=== PATIENT | male | born 1965 | race Caucasian/White ===

== ENCOUNTER 2019-04-13 16:43 | Observation (INO) ==
--- NOTE | 2019-04-13 17:28 | Emergency Department Note ---
Disposition Clinical Impression: Hypokalemia, Hypomagnesemia Disposition: Admitted As Inpatient Time of Disposition: 20:20 General Adult HPI - General Chief complaint: ED Extremity Problem,Nontraumatic Stated complaint: Right hand cellulitis Time Seen by Provider: 04/13/19 17:22 - History of Present Illness Pain Scale: 0 - Related Data Home Medications Medication Instructions Recorded Confirmed Metformin HCl [Fortamet] 1,000 mg PO DAILY 03/08/19 04/13/19 Metoprolol Succinate [Toprol Xl] 100 mg PO DAILY 03/09/19 04/13/19 Previous Rx's Medication Instructions Recorded Multivitamin [One Daily] 1 each PO DAILY #30 tablet 03/15/19 Sodium Chloride [Sodium Chloride 1 gm PO TID #90 tablet 03/15/19 Tab] Tamsulosin [Flomax] 0.4 mg PO DAILY #30 capsule 03/15/19 Allergies Allergy/AdvReac Type Severity Reaction Status Date / Time Sulfa (Sulfonamide Allergy Rash Verified 03/09/19 10:31 Antibiotics) Past Medical History - Past Medical History Medical history: Reports: diabetes, hypertension Psychiatric history: Reports: no psych history - Social History Smoking Status: Never smoker Alcohol use: Reports: heavy Drug use: Reports: none Course Vital Signs Temperature 97.7 F 04/13/19 16:44 Pulse Rate 92 04/13/19 16:44 Respiratory Rate 16 04/13/19 16:44 Blood Pressure 104/68 04/13/19 16:44 O2 Sat by Pulse Oximetry 97 04/13/19 16:44 Temperature 97.7 F 04/13/19 18:20 Pulse Rate 80 04/13/19 19:53 Respiratory Rate 17 04/13/19 19:53 Blood Pressure 124/81 04/13/19 19:53 O2 Sat by Pulse Oximetry 98 04/13/19 19:53 Oxygen Delivery Oxygen Delivery Room Air Medical Decision Making - Lab Data Result diagrams: 04/13/19 17:42 04/13/19 17:42 Lab Results 04/13/19 04/13/19 04/13/19 Range/Units 17:42 17:42 17:42 WBC 8.5 (4.3-11.1) K/mcL RBC 3.28 L (4.19-5.50) M/mcL Hgb 10.2 L (12.9-16.9) g/dL Hct 29.7 L (37.5-50.1) % MCV 90.5 (83.0-100.0) fL MCH 31.1 (28.0-33.3) pg MCHC 34.3 (31.6-35.5) g/dL RDW 13.1 (11.5-14.5) % Plt Count 297 (140-400) K/mcL MPV 9.4 (9.4-12.4) fL Immature Gran % 1.3 (0-4) % Seg Neutrophils % 77.9 % Lymphocytes % 11.3 % Monocytes % 8.6 % Eosinophils % 0.5 % Basophils % 0.4 % Neutrophils # 6.6 (1.6-8.9) K/mcL Lymphocytes # 1.0 (0.6-4.6) K/mcL Monocytes # 0.7 (0.0-1.3) K/mcL Eosinophils # 0.0 (0.0-0.6) K/mcL Basophils # 0.0 (0.0-0.2) K/mcL ESR 72 H (0-10) mm/hr Sodium 129 L (136-145) mEq/L Potassium 2.3 L* (3.5-5.1) mEq/L Chloride 84 L (98-107) mEq/L Carbon Dioxide 41 H* (23-29) mEq/L BUN 8 (6-20) mg/dL Creatinine 0.67 L (0.70-1.30) mg/dL Est GFR ( Amer) > 60 (> 60) Est GFR (Non-Af Amer) > 60 (> 60) BUN/Creatinine Ratio 12 (6-26) Glucose 124 H (70-105) mg/dL Calculated Osmolality 268 L (280-300) Calcium 8.1 L (8.6-10.3) mg/dL Phosphorus 3.3 (2.7-4.5) mg/dL Magnesium 1.1 L (1.6-2.6) mg/dL C-Reactive Protein 127 H (Less than 10) mg/L Urine Color (Yellow) Urine Clarity (Clear) Urine pH (5.0-8.0) pH Units Ur Specific [place] (1.010-1.025) Urine Protein (Neg-Trace) mg/dL Urine Glucose (UA) (Normal) mg/dL Urine Ketones (Negative) mg/dL Urine Blood (Negative) Urine Nitrite (Negative) Urine Bilirubin (Negative) Urine Urobilinogen (Normal) mg/dL Ur Leukocyte Esterase (Negative) 04/13/19 Range/Units 19:45 WBC (4.3-11.1) K/mcL RBC (4.19-5.50) M/mcL Hgb (12.9-16.9) g/dL Hct (37.5-50.1) % MCV (83.0-100.0) fL MCH (28.0-33.3) pg MCHC (31.6-35.5) g/dL RDW (11.5-14.5) % Plt Count (140-400) K/mcL MPV (9.4-12.4) fL Immature Gran % (0-4) % Seg Neutrophils % % Lymphocytes % % Monocytes % % Eosinophils % % Basophils % % Neutrophils # (1.6-8.9) K/mcL Lymphocytes # (0.6-4.6) K/mcL Monocytes # (0.0-1.3) K/mcL Eosinophils # (0.0-0.6) K/mcL Basophils # (0.0-0.2) K/mcL ESR (0-10) mm/hr Sodium (136-145) mEq/L Potassium (3.5-5.1) mEq/L Chloride (98-107) mEq/L Carbon Dioxide (23-29) mEq/L BUN (6-20) mg/dL Creatinine (0.70-1.30) mg/dL Est GFR ( Amer) (> 60) Est GFR (Non-Af Amer) (> 60) BUN/Creatinine Ratio (6-26) Glucose (70-105) mg/dL Calculated Osmolality (280-300) Calcium (8.6-10.3) mg/dL Phosphorus (2.7-4.5) mg/dL Magnesium (1.6-2.6) mg/dL C-Reactive Protein (Less than 10) mg/L Urine Color Yellow (Yellow) Urine Clarity Cloudy A (Clear) Urine pH 7.0 (5.0-8.0) pH Units Ur Specific [place] 1.012 (1.010-1.025) Urine Protein Trace (Neg-Trace) mg/dL Urine Glucose (UA) Normal (Normal) mg/dL Urine Ketones Negative (Negative) mg/dL Urine Blood Negative (Negative) Urine Nitrite Positive A (Negative) Urine Bilirubin Negative (Negative) Urine Urobilinogen 4.0 H (Normal) mg/dL Ur Leukocyte Esterase Moderate H (Negative) Critical Care Time Critical Care Time: Yes Total Critical Care Time: 30 Attestation: The high probability of a clinically significant, sudden or life threatening deterioration of the [] system(s) required my full and direct attention, intervention and personal management. The aggregate critical care time was [] minutes. This time is in addition to time spent performing reported procedures but includes the following: [] Data Review and interpretation [] Patient assessment and monitoring of vital signs [] Documentation [] Medication orders and management Attestation Statement - Attestation Attestation: I reviewed the residents documentation and agree with the residents assessment and plan of care. I have personally had face to face time with the patient. (Brief History, Brief Exam, and MDM) I personally supervised and was present for the granados/critical portions of the following procedures completed by the resident: (add procedures performed here). Face to face time provided Patient to ED from residency clinic. Atraumatic right hand swelling. Mild increased tactile warmth. visible swelling. No reports of injury I attest to supervising the resident physician's interpretation of the ECG
--- NOTE | 2019-04-13 18:14 | Emergency Department Note ---
Disposition Clinical Impression: Hypokalemia, Hypomagnesemia Disposition: Admitted As Inpatient Referrals: Kiran Broussard DO [Primary Care Provider] - Forms: ED Satisfaction Letter Time of Disposition: 19:35 Extremity Problem HPI - General Chief complaint: ED Extremity Problem,Nontraumatic Stated complaint: Right hand cellulitis Time Seen by Provider: 04/13/19 17:22 Source: patient, family Mode of arrival: ambulatory Limitations: no limitations Nursing Notes Reviewed: Yes Vital Signs Reviewed: Yes - History of Present Illness HPI Narrative: 54M with past medical history of diabetes and hypertension presents to the emergency room from the residency clinic with the complaint of right hand swelling and dysuria. There is also some concern as the patient has had a dropping hemoglobin over the past several months. Patient denies pain in the hand. He admits to some odor in the urine. He denies fever, chills, chest pain, shortness of breath, abdominal pain, nausea vomiting, diarrhea. Pain Scale: 0 - Related Data Home Medications Medication Instructions Recorded Confirmed Metformin HCl [Fortamet] 1,000 mg PO DAILY 03/08/19 03/09/19 Metoprolol Succinate [Toprol Xl] 100 mg PO DAILY 03/09/19 03/09/19 Previous Rx's Medication Instructions Recorded Multivitamin [One Daily] 1 each PO DAILY #30 tablet 03/15/19 Sodium Chloride [Sodium Chloride 1 gm PO TID #90 tablet 03/15/19 Tab] Tamsulosin [Flomax] 0.4 mg PO DAILY #30 capsule 03/15/19 Allergies Allergy/AdvReac Type Severity Reaction Status Date / Time Sulfa (Sulfonamide Allergy Rash Verified 03/09/19 10:31 Antibiotics) All systems ED: reviewed and negative except as stated. Review of Systems: As Per HPI Constitutional: Denies: fever, chills, weakness Cardiovascular: Denies: chest pain, palpitations, dyspnea on exertion Respiratory: Denies: cough, dyspnea, wheezes Gastrointestinal: Denies: abdominal pain, nausea, vomiting Genitourinary: Reports: dysuria. Denies: hematuria Musculoskeletal: Reports: joint swelling. Denies: back pain, neck pain Integumentary: Denies: rash Neurological: Denies: headache Psychiatric: Denies: anxiety Endocrine: Denies: fatigue Past Medical History - Past Medical History Attestation: Yes The following information was validated with the patient. Source: patient Medical history: Reports: diabetes, hypertension Psychiatric history: Reports: no psych history - Social History Smoking Status: Never smoker Alcohol use: Reports: heavy Drug use: Reports: none Physical Exam - General Limitations: no limitations General appearance: alert, in no apparent distress - Head Head exam: atraumatic, normocephalic - Eye Eye exam: Present: normal appearance, PERRL, EOMI - ENT ENT exam: normal exam, normal oropharynx - Neck Neck exam: Present: normal inspection. Absent: tenderness - Chest Chest inspection: Present: normal inspection. Absent: tenderness - Respiratory Respiratory exam: Present: normal lung sounds bilaterally. Absent: wheezes - Cardiovascular Cardiovascular exam: Present: regular rate, normal rhythm - Abdominal Exam Abdominal exam: Present: soft, Non-Tender. Absent: distention, guarding, rebound, rigidity - Extremities Exam Extremities exam: Present: other (Right hand swelling without any tenderness to palpation. Nonpitting edema. No visible lacerations or abrasions. Not erythematous or warm to touch) - Neurological Exam Neurological exam: Present: alert, oriented X3 - Psychiatric Psychiatric exam: Present: normal affect, normal mood - Skin Skin exam: Present: warm, dry, intact Course Vital Signs Temperature 97.7 F 04/13/19 16:44 Pulse Rate 92 04/13/19 16:44 Respiratory Rate 16 04/13/19 16:44 Blood Pressure 104/68 04/13/19 16:44 O2 Sat by Pulse Oximetry 97 04/13/19 16:44 Temperature 97.7 F 04/13/19 18:20 Pulse Rate 79 04/13/19 18:50 Respiratory Rate 15 04/13/19 18:50 Blood Pressure 132/80 04/13/19 18:50 O2 Sat by Pulse Oximetry 96 04/13/19 18:50 Oxygen Delivery Oxygen Delivery Room Air Extremity Problem, Nontraumati - MDM Narrative Medical decision making narrative: Patient presents with right hand swelling and dysuria. We will evaluate the dysuria with urinalysis and we will evaluate the hand with a right upper extremity ultrasound, basic lab work, ESR and CRP. 181 - patient is negative for DVT and SVT in the right upper extremity. Awaiting lab work at this time. 183 - patient's potassium is critically low at 2.3. We will add on a magnesium, EKG and placed patient on a cardiac cath lab manager. 1900 - patient's magnesium is 1.1. EKG does not demonstrate any significant prolongation or other changes consistent with hypokalemia. Patient will be admitted for placement of his electrolytes. We will administer 2 g of magnesium here along with 80 mg of potassium. 1934 - patient has been accepted by Dr. Turnre - Medical Records Medical records reviewed: Yes I reviewed the patient's medical records. - Lab Data Lab results reviewed: Yes I reviewed the patient's lab results. Result diagrams: 04/13/19 17:42 04/13/19 17:42 Lab Results 04/13/19 04/13/19 04/13/19 Range/Units 17:42 17:42 17:42 WBC 8.5 (4.3-11.1) K/mcL RBC 3.28 L (4.19-5.50) M/mcL Hgb 10.2 L (12.9-16.9) g/dL Hct 29.7 L (37.5-50.1) % MCV 90.5 (83.0-100.0) fL MCH 31.1 (28.0-33.3) pg MCHC 34.3 (31.6-35.5) g/dL RDW 13.1 (11.5-14.5) % Plt Count 297 (140-400) K/mcL MPV 9.4 (9.4-12.4) fL Immature Gran % 1.3 (0-4) % Seg Neutrophils % 77.9 % Lymphocytes % 11.3 % Monocytes % 8.6 % Eosinophils % 0.5 % Basophils % 0.4 % Neutrophils # 6.6 (1.6-8.9) K/mcL Lymphocytes # 1.0 (0.6-4.6) K/mcL Monocytes # 0.7 (0.0-1.3) K/mcL Eosinophils # 0.0 (0.0-0.6) K/mcL Basophils # 0.0 (0.0-0.2) K/mcL ESR 72 H (0-10) mm/hr Sodium 129 L (136-145) mEq/L Potassium 2.3 L* (3.5-5.1) mEq/L Chloride 84 L (98-107) mEq/L Carbon Dioxide 41 H* (23-29) mEq/L BUN 8 (6-20) mg/dL Creatinine 0.67 L (0.70-1.30) mg/dL Est GFR ( Amer) > 60 (> 60) Est GFR (Non-Af Amer) > 60 (> 60) BUN/Creatinine Ratio 12 (6-26) Glucose 124 H (70-105) mg/dL Calculated Osmolality 268 L (280-300) Calcium 8.1 L (8.6-10.3) mg/dL Magnesium 1.1 L (1.6-2.6) mg/dL C-Reactive Protein 127 H (Less than 10) mg/L - EKG Data EKG attestation: Yes I reviewed and interpreted this EKG. EKG results narrative: EKG obtained at 18:42 on 04/13/2090 Heart rate 73 bpm, MO interval 136, QRS duration 93, QT 443, QTC 489 Sinus rhythm with borderline prolonged QT interval. No signs of ST segment elevation or depression. No significant flattening of the T waves. No acute hypokalemic changes. No old EKG for comparison.
[2019-04-13 18:21] LABS: Basophils % 0.4 %; Eosinophils % 0.5 %; Hematocrit 29.7 % (37.5-50.1); Hemoglobin 10.2 g/dL (12.9-16.9); Immature Granulocytes % 1.3 % (0-4); Lymphocytes % 11.3 %; Mean Corpuscular HGB Conc 34.3 g/dL (31.6-35.5); Mean Corpuscular Hemoglobin 31.1 pg (28.0-33.3); Mean Corpuscular Volume 90.5 fL (83.0-100.0); Mean Platelet Volume 9.4 fL (9.4-12.4); Monocytes # 0.7 K/mcL (0.0-1.3); Monocytes % 8.6 %; Neutrophils # 6.6 K/mcL (1.6-8.9); Platelet Count 297 K/mcL (140-400); Red Blood Count 3.28 M/mcL (4.19-5.50); Red Cell Distribution Width 13.1 % (11.5-14.5); Segmented Neutrophils % 77.9 %; White Blood Count 8.5 K/mcL (4.3-11.1)
[2019-04-13 18:32] LABS: BUN/Creatinine Ratio 12 (6-26); Blood Urea Nitrogen 8 mg/dL (6-20); C-Reactive Protein 127 mg/L (Less than 10); Calcium 8.1 mg/dL (8.6-10.3); Carbon Dioxide 41 mEq/L (23-29); Chloride 84 mEq/L (98-107); Glucose 124 mg/dL (70-105); Osmolality,Calculated 268 (280-300); Potassium 2.3 mEq/L (3.5-5.1); Sodium 129 mEq/L (136-145); eGFR For African Americans > 60 (> 60); eGFR For Non-African Americans > 60 (> 60)
[2019-04-13] MEDS ORDERED: Potassium Chloride Elixir 20 MEQ/15 ML UDC PO ONE (18:37)
[2019-04-13] MEDS ORDERED: Potassium Chloride 40 MEQ, Lidocaine 1% 2 ML in D5% in Water 500 ML IVPB ONE (18:49)
[2019-04-13 18:58] LABS: Magnesium 1.1 mg/dL (1.6-2.6)
[2019-04-13 20:00] LABS: Bilirubin,Urine Negative (Negative); Blood,Urine Negative (Negative); Clarity,Urine Cloudy (Clear); Color,Urine Yellow (Yellow); Glucose,Urine (UA) Normal (Normal); Ketones,Urine Negative (Negative); Leukocyte Esterase,Urine Moderate (Negative); Nitrite,Urine Positive (Negative); Protein,Urine Trace mg/dL (Neg-Trace); Specific Gravity,Urine 1.012 (1.010-1.025)
[2019-04-13 20:04] LABS: Phosphorous 3.3 mg/dL (2.7-4.5)
[2019-04-13 20:05] LABS: Bacteria,Urine Many per hpf (None-Few); Hyaline Casts,Urine None Seen per lpf (None-Few); Squamous Epithelial Cell,Urine Moderate per lpf (None-Few)
[2019-04-13 20:20] LABS: RBC,Urine 0-3 per hpf (0-3); WBC,Urine 15-30 per hpf (0-3)
[2019-04-13] MEDS ORDERED: cefTRIAXone 1,000 MG in Water for inj. (sterile) 10 ML IVPB ONE (20:26)
[2019-04-13] MEDS ORDERED: Naloxone 0.4 MG/ML INJ IVP PRN (22:23)
--- NOTE | 2019-04-13 22:42 | Internal Med History&Physical ---
Date of Encounter: 04/13/19 Time of Encounter: 21:20 Internal Medicine - H&P: HPI Chief complaint: Electrolyte abnormalities Admitted From: Emergency Dept Plans for Post Hospital Care: Home History of present illness: Mr. Alcaraz is a 54 year old male Patient presented to the emergency department with swelling in his right hand, fevers for 1 week and burning with urination. He had been at the residency clinic for routine follow up from his previous hospitalization after being discharged from the hospital March 15 for severe hyponatremia and alcoholism. According to family who is at bedside they state that he has been off alcohol since his discharge, he has lost about 20 pounds, he has no appetite and he is been feverish. At the residency clinic he was also noted to have a low hemoglobin. They recommended him coming to the emergency department for further evaluation. In the emergency department patient's initial vital signs were within normal limits CBC: White count 8.5, hemoglobin 10.2, platelets 297 BMP: Sodium 129, potassium 2.3, chloride 84, bicarbonate 41, BUN 8, creatinine 0.67, glucose 124. Magnesium 1.1 Calcium 8.1 Phosphorus 3.3 C-reactive protein 127 ESR 72 Urinalysis: Nitrite positive, negative blood, moderate leukocyte esterase, 15-30 white blood cells EKG: Sinus rhythm, rate 73, QTC 489 ms. No ischemic changes. In the emergency department patient had an ultrasound of his hand performed which was negative for DVT and SVT in the right upper extremity. He was started on oral and IV potassium, as well as IV magnesium. He was given 1 dose of ceftriaxone IV, and urine cultures were obtained. He was admitted to the hospital for further management. Upon my evaluation, patient is resting comfortably in hospital bed in no acute distress. His family is at bedside and they assist with the history. The patient denies chest pain, bowel pain, nausea, vomiting, diarrhea and constip ation. The family confirms that he has not had alcohol since his previous hospitalization. Formally he was drinking 18-20 beers daily. They think that since then he has not had much of an appetite and thus accounting for his weight loss. He is a full code. Past Med Surg Social Fam HX - Past Medical History Medical history: diabetes, hypertension Additional medical history: EtOH abuse Psychiatric history: no psych history - Past Surgical History Additional surgical history: L ankle - Social History Smoking Status: Never smoker Smokeless Tobacco Status: No Alcohol use: none, heavy Drug use: none - Family History Mother Hx Family Endocrine Disorder: Yes (Diabetes) Father Hx Family Endocrine Disorder: Yes (Diabetes) Internal Medicine - H&P: Meds Metformin HCl [Fortamet] 1,000 mg PO DAILY 03/08/19 [History] Metoprolol Succinate [Toprol Xl] 100 mg PO DAILY 03/09/19 [History] Multivitamin [One Daily] 1 each PO DAILY #30 tablet 03/15/19 [Rx] Sodium Chloride [Sodium Chloride Tab] 1 gm PO TID #90 tablet 03/15/19 [Rx] Tamsulosin [Flomax] 0.4 mg PO DAILY #30 capsule 03/15/19 [Rx] Allergy/AdvReac Type Severity Reaction Status Date / Time Sulfa (Sulfonamide Allergy Rash Verified 03/09/19 10:31 Antibiotics) All Systems PM: A 10-system review of systems was performed and is negative for pertinent findings except as documented above in the HPI. - Constitutional Vitals: Temp Pulse Resp BP Pulse Ox 98.1 F 76 16 146/89 96 04/13/19 20:43 04/13/19 20:43 04/13/19 20:43 04/13/19 20:43 04/13/19 20:43 Exam: - General appearance: Present: cooperative, A&O X 3, pleasant, no acute distress, answers questions appropriately Exam: - Head Head exam: Present: normal inspection - Eye Eye exam: Present: EOMI, normal appearance - Respiratory Respiratory exam: Present: CTAB. Absent: rales, respiratory distress, rhonchi, wheezes - Cardiovascular Cardiovascular exam: Present: RRR. Absent: Grade 2 systolic murmur - GI/Abdominal GI/Abdominal exam: Present: normal bowel sounds, soft. Absent: tenderness - Extremities Exam Extremities exam: Present: warm, radial pulses palpable and symmetrical. Absent: calf tenderness, pedal edema, tenderness. Mild right hand swelling, nontender, full range of motion at wrist and fingers. No wound - Neurological Exam Neurological exam: Present: no focal deficits, strengths equal and symetr throughout. Absent: motor sensory deficit, facial droop, speech deficit - Skin Skin exam: Present: dry, normal color, warm Internal Med - H&P Results - Labs CBC & Chem 7: 04/13/19 17:42 04/13/19 17:42 Labs: Short CBC 04/13/19 Range/Units 17:42 WBC 8.5 (4.3-11.1) K/mcL Hgb 10.2 L (12.9-16.9) g/dL Hct 29.7 L (37.5-50.1) % Plt Count 297 (140-400) K/mcL Neutrophils # 6.6 (1.6-8.9) K/mcL BMP 04/13/19 17:42 Sodium 129 L Potassium 2.3 L* Chloride 84 L Carbon Dioxide 41 H* BUN 8 Creatinine 0.67 L Glucose 124 H Calcium 8.1 L Urine 04/13/19 Range/Units 19:45 Urine Color Yellow (Yellow) Urine Clarity Cloudy A (Clear) Urine pH 7.0 (5.0-8.0) pH Units Ur Specific [place] 1.012 (1.010-1.025) Urine Protein Trace (Neg-Trace) mg/dL Urine Glucose (UA) Normal (Normal) mg/dL - Assessment and Plan (1) Hypokalemia Current Visit: Yes Status: Acute Assessment and plan: Potassium was 2.3 in the emergency department. A total of 80 mEq of potassium has been given. Repeat BMP Replete if indicated (2) Hypomagnesemia Current Visit: Yes Status: Acute Assessment and plan: Magnesium was 1.1 in the emergency department. 2 g of magnesium was given in the emergency department. Repeat magnesium level Replete if indicated (3) Hyponatremia Current Visit: No Status: Acute Assessment and plan: Sodium 129, down from 133 about 2 weeks ago. He is much improved from his initial presentation earlier last month when he had a sodium of 111. Avoid overcorrection Hold IV fluids Repeat BMP Will give slow IV fluids if indicated Continue salt tablets once no longer nothing by mouth (4) Hypocalcemia Current Visit: Yes Status: Acute Assessment and plan: Likely secondary to malnutrition and low magnesium. Repeat morning labs Replete magnesium (5) Swelling of right hand Current Visit: Yes Status: Acute Assessment and plan: Patient does have mild swelling on exam, but no tenderness or loss of motion. No DVT noted on the ultrasound performed in the emergency department. Will consider further imaging if infection is suspected though at this time low suspicion of infection. Patient does have elevated ESR and CRP, but no other obvious signs of infection. Patient has been started on ceftriaxone for UTI, however blood cultures were not obtained in the emergency room. Obtain blood cultures Monitor for worsening signs of infection (6) UTI (urinary tract infection) Current Visit: No Status: Acute Assessment and plan: Positive nitrite with symptomatic dysuria and odor. Urine culture obtained, patient was started on ceftriaxone. Continue ceftriaxone Follow-up urine culture Qualifiers: Urinary tract infection type: acute cystitis Hematuria presence: without hematuria Qualified Code(s): N30.00 - Acute cystitis without hematuria (7) Weight loss Current Visit: Yes Status: Acute Assessment and plan: Likely secondary to adjustments of no longer drinking high levels of alcohol as he used to do. Family would like nutrition recommendations to help him maintain and gain his weight back. Nutrition consult in the morning (8) Diabetes Current Visit: No Status: Chronic Assessment and plan: Patient is not an insulin dependent diabetic Monitor sugars every 6 hours Nothing by mouth while patient is having supplementation for his electrolyte derangements Low dose insulin sliding scale as needed Hold home meds. Qualifiers: Diabetes mellitus type: type 2 Diabetes mellitus prison insulin use: without prison use Diabetes mellitus complication status: without complication Qualified Code(s): E11.9 - Type 2 diabetes mellitus without complications (9) DVT prophylaxis Current Visit: No Status: Acute Assessment and plan: Subcutaneous heparin - Time Spent With Patient Total time spent is greater than 50% in coordination of care (as documented) at patient's floor/unit and/or counseling patient: Greater than 35 minutes
[2019-04-13] MEDS ORDERED: D5% in Water 1,000 ML IVC PRN (22:45)
[2019-04-13] MEDS ORDERED: *HR* Dextrose 50 % in Water (Syg) 50 ML SYRINGE IVP PRN (22:45)
[2019-04-13] MEDS ORDERED: Dextrose Gel 15 GM/37.5 ML TUBE PO PRN ×2 (22:45)
[2019-04-13 23:36] LABS: BUN/Creatinine Ratio 15 (6-26); Blood Urea Nitrogen 8 mg/dL (6-20); Calcium 7.9 mg/dL (8.6-10.3); Carbon Dioxide 37 mEq/L (23-29); Chloride 86 mEq/L (98-107); Glucose 167 mg/dL (70-105); Osmolality,Calculated 270 (280-300); Potassium 2.9 mEq/L (3.5-5.1); Sodium 129 mEq/L (136-145); eGFR For African Americans > 60 (> 60); eGFR For Non-African Americans > 60 (> 60)
[2019-04-14 04:19] LABS: Hematocrit 31.5 % (37.5-50.1); Hemoglobin 10.5 g/dL (12.9-16.9); Mean Corpuscular HGB Conc 33.3 g/dL (31.6-35.5); Mean Corpuscular Hemoglobin 30.6 pg (28.0-33.3); Mean Corpuscular Volume 91.8 fL (83.0-100.0); Mean Platelet Volume 9.2 fL (9.4-12.4); Platelet Count 291 K/mcL (140-400); Red Blood Count 3.43 M/mcL (4.19-5.50); Red Cell Distribution Width 13.2 % (11.5-14.5); White Blood Count 7.4 K/mcL (4.3-11.1)
[2019-04-14 04:26] LABS: INR 1.3; Prothrombin Time 15.3 Seconds (9.4-12.1)
[2019-04-14] MEDS: Insulin LISPRO 300 UNITS/3 ML VIAL SQ SCH ×4 (04:34→17:32)
[2019-04-14 04:35] LABS: Alanine Aminotransferase 18 Units/L (7-52); Albumin 2.7 g/dL (3.5-5.7); Albumin/Globulin Ratio 0.9 (1.1-2.2); Alkaline Phosphatase 50 Units/L (34-104); Aspartate Amino Transferase 19 Units/L (13-39); BUN/Creatinine Ratio 12 (6-26); Blood Urea Nitrogen 7 mg/dL (6-20); Carbon Dioxide 36 mEq/L (23-29); Chloride 86 mEq/L (98-107); Globulin 2.9 g/dL (2.4-3.5); Glucose 126 mg/dL (70-105); Osmolality,Calculated 272 (280-300); Potassium 2.6 mEq/L (3.5-5.1); Sodium 131 mEq/L (136-145); Total Protein 5.6 g/dL (6.4-8.9); eGFR For African Americans > 60 (> 60); eGFR For Non-African Americans > 60 (> 60)
[2019-04-14] MEDS: *HR* Heparin 5,000 UNIT/ML VIAL SQ SCH ×2 (05:51→17:35)
[2019-04-14] MEDS ORDERED: Potassium Chloride 40 MEQ, Lidocaine 1% 2 ML in D5% in Water 500 ML IVPB ONE (06:43)
[2019-04-14] MEDS: cefTRIAXone 1,000 MG in Water for inj. (sterile) 10 ML IVP SCH (09:00)
--- NOTE | 2019-04-14 14:32 | Internal Med Progress Note ---
Hospitalist Progress Note - Encounter Date of Encounter: 04/14/19 Time of Encounter: 10:30 - Subjective Interval History: Mr. Alcaraz is a 54 year old male with known past medical history of hypertension, diabetes type II and alcohol abuse Patient presented to the emergency department with swelling in his right hand, fevers for 1 week and burning with urination. He had been at the residency clinic for routine follow up from his previous hospitalization after being discharged from the hospital March 15 for severe hyponatremia and alcoholism. According to family who is at bedside they state that he has been off alcohol since his discharge, he has lost about 20 pounds, he has no appetite and he is been feverish. He was admitted in the hospital and started him on empirical antibiotic IV Rocephin. Patient stated his right forearm swelling little better today. he still feeling weak and lethargic. He denied any chest pain/shortness of breath - Exam Vitals: Temp Pulse Resp BP Pulse Ox 98.1 F 101 15 102/67 98 04/14/19 11:54 04/14/19 11:54 04/14/19 11:54 04/14/19 11:54 04/14/19 11:54 Exam: Gen: Alert, awake, Oriented to time,place and person Chest: Diminished breath sounds B/L, No wheezing, No crackles, No rales Heart: S1S2+ tachycardia, No murmurs Abd: Soft, NT, BS +, No organomegaly Ext: moderate swelling, mild erythema and edema noticed in Rt forearm and wrist, pulses are palpable, No calf tenderness Neuro : No acute focal neuro deficits noticed Skin: No rash. - Assessment and Plan (1) Hyponatremia Current Visit: No Status: Acute Assessment and Plan: Improving current Na @ 131 gentle IV hydration only cont close monitoring (2) UTI (urinary tract infection) Current Visit: No Status: Acute Assessment and Plan: Positive nitrite with symptomatic dysuria and odor Continue ceftriaxone Follow-up urine culture (3) Diabetes Current Visit: No Status: Chronic Assessment and Plan: on ADA diet on ISS (4) DVT prophylaxis Current Visit: No Status: Acute Assessment and Plan: Subcutaneous heparin (5) Hypokalemia Current Visit: Yes Status: Acute Assessment and Plan: Potassium was 2.3 in the ER A total of 80 mEq of potassium has been given However this morning K + was still 2.6 Ordered more K + supplements close monitoring of K + and Mg Replete if indicated (6) Hypomagnesemia Current Visit: Yes Status: Acute Assessment and Plan: Magnesium was 1.1 in the emergency department 2 g of magnesium was given in the emergency department. Still low Mg ordered another gram of Mg (7) Hypocalcemia Current Visit: Yes Status: Acute Assessment and Plan: Likely secondary to malnutrition and low magnesium. Improving (8) Swelling of right hand Current Visit: Yes Status: Acute Assessment and Plan: Concerning for hand cellulitis continue IV antibiotic Rocephin ordered CT of the hand and forearm (9) Weight loss Current Visit: Yes Status: Acute Assessment and Plan: He does have mild to moderate PCM will check pre-albumin level in the morning consulted literacy specialist for further evaluation - Time Spent with Patient Total time spent is greater than 50% in coordination of care (as documented) at patient's floor/unit and/or counseling patient: Internal Medicine: Result - Labs CBC & Chem 7: 04/14/19 03:51 04/14/19 03:51 Labs: Short CBC 04/13/19 04/14/19 Range/Units 17:42 03:51 WBC 8.5 7.4 (4.3-11.1) K/mcL Hgb 10.2 L 10.5 L (12.9-16.9) g/dL Hct 29.7 L 31.5 L (37.5-50.1) % Plt Count 297 291 (140-400) K/mcL Neutrophils # 6.6 (1.6-8.9) K/mcL BMP 04/13/19 04/13/19 04/14/19 17:42 22:46 03:51 Sodium 129 L 129 L 131 L Potassium 2.3 L* 2.9 L D 2.6 L Chloride 84 L 86 L 86 L Carbon Dioxide 41 H* 37 H 36 H BUN 8 8 7 Creatinine 0.67 L 0.55 L 0.60 L Glucose 124 H 167 H 126 H Calcium 8.1 L 7.9 L 8.0 L Liver Function 04/14/19 Range/Units 03:51 Total Bilirubin 1.0 (0.3-1.0) mg/dL AST 19 (13-39) Units/L ALT 18 (7-52) Units/L Alkaline Phosphatase 50 (34-104) Units/L Albumin 2.7 L (3.5-5.7) g/dL Urine 04/13/19 Range/Units 19:45 Urine Color Yellow (Yellow) Urine Clarity Cloudy A (Clear) Urine pH 7.0 (5.0-8.0) pH Units Ur Specific Brent 1.012 (1.010-1.025) Urine Protein Trace (Neg-Trace) mg/dL Urine Glucose (UA) Normal (Normal) mg/dL - ABG Interpretation ABG results: PT/INR, D-dimer PT 15.3 Seconds (9.4-12.1) H 04/14/19 03:51 Consult Discharge Plan - Plan Referrals: Kiran Broussard DO [Primary Care Provider] - 04/20/19 3:00 pm (2) UTI (urinary tract infection) Qualifiers: Urinary tract infection type: acute cystitis Hematuria presence: without hematuria Qualified Code(s): N30.00 - Acute cystitis without hematuria (3) Diabetes Qualifiers: Diabetes mellitus type: type 2 Diabetes mellitus jail insulin use: without jail use Diabetes mellitus complication status: without c omplication Qualified Code(s): E11.9 - Type 2 diabetes mellitus without co mplications
[2019-04-14 16:30] LABS: BUN/Creatinine Ratio 13 (6-26); Blood Urea Nitrogen 9 mg/dL (6-20); Carbon Dioxide 36 mEq/L (23-29); Chloride 89 mEq/L (98-107); Glucose 74 mg/dL (70-105); Magnesium 1.6 mg/dL (1.6-2.6); Osmolality,Calculated 263 (280-300); Potassium 3.2 mEq/L (3.5-5.1); Sodium 128 mEq/L (136-145); eGFR For African Americans > 60 (> 60); eGFR For Non-African Americans > 60 (> 60)
[2019-04-14] MEDS ORDERED: Insulin LISPRO 300 UNITS/3 ML VIAL SQ SCH (21:00)
[2019-04-15 04:48] LABS: Hematocrit 28.5 % (37.5-50.1); Hemoglobin 9.6 g/dL (12.9-16.9); Mean Corpuscular HGB Conc 33.7 g/dL (31.6-35.5); Mean Corpuscular Hemoglobin 31.4 pg (28.0-33.3); Mean Corpuscular Volume 93.1 fL (83.0-100.0); Mean Platelet Volume 9.3 fL (9.4-12.4); Platelet Count 263 K/mcL (140-400); Red Blood Count 3.06 M/mcL (4.19-5.50); Red Cell Distribution Width 13.2 % (11.5-14.5); White Blood Count 6.8 K/mcL (4.3-11.1)
[2019-04-15 05:11] LABS: Alanine Aminotransferase 18 Units/L (7-52); Albumin 2.5 g/dL (3.5-5.7); Albumin/Globulin Ratio 0.9 (1.1-2.2); Alkaline Phosphatase 62 Units/L (34-104); Aspartate Amino Transferase 20 Units/L (13-39); BUN/Creatinine Ratio 13 (6-26); Bilirubin,Total 0.8 mg/dL (0.3-1.0); Blood Urea Nitrogen 8 mg/dL (6-20); Calcium 8.2 mg/dL (8.6-10.3); Carbon Dioxide 31 mEq/L (23-29); Chloride 91 mEq/L (98-107); Globulin 2.9 g/dL (2.4-3.5); Glucose 122 mg/dL (70-105); Magnesium 1.3 mg/dL (1.6-2.6); Osmolality,Calculated 268 (280-300); Potassium 2.9 mEq/L (3.5-5.1); Sodium 129 mEq/L (136-145); Total Protein 5.4 g/dL (6.4-8.9); eGFR For African Americans > 60 (> 60); eGFR For Non-African Americans > 60 (> 60)
[2019-04-15] MEDS: *HR* Heparin 5,000 UNIT/ML VIAL SQ SCH (05:34)
[2019-04-15] MEDS: Insulin LISPRO 300 UNITS/3 ML VIAL SQ SCH ×2 (07:50→12:16)
[2019-04-15] MEDS: cefTRIAXone 1,000 MG in Water for inj. (sterile) 10 ML IVP SCH (08:12)
[2019-04-15] MEDS ORDERED: Magnesium Oxide 400 MG TABLET PO SCH (09:30)
[2019-04-15 10:42] VITALS: BP 149/89
[2019-04-15 12:55] LABS: BUN/Creatinine Ratio 12 (6-26); Blood Urea Nitrogen 8 mg/dL (6-20); Calcium 8.2 mg/dL (8.6-10.3); Carbon Dioxide 34 mEq/L (23-29); Chloride 90 mEq/L (98-107); Glucose 133 mg/dL (70-105); Osmolality,Calculated 268 (280-300); Potassium 3.3 mEq/L (3.5-5.1); Sodium 129 mEq/L (136-145); eGFR For African Americans > 60 (> 60); eGFR For Non-African Americans > 60 (> 60)
--- NOTE | 2019-04-15 13:15 | Discharge Summary ---
- NOTES TO OUTPATIENT PROVIDER Notes to Outpatient Provider: f/u with PCP in one week. Please continue quit drinking alcohol. Please go for blood work BMP, Mg in 2 days and f/u with PCP for test results. Orders not resulted at time of discharge: Pending orders 04/13/19 19:45 Culture,Urine [RM] Stat 04/13/19 23:10 Culture,Blood [BC] Routine Date of Encounter: 04/15/19 Time of Encounter: 13:12 - Discharge Diagnosis (1) Hyponatremia Priority: Primary Status: Acute (2) Cellulitis of right hand Priority: Primary Status: Acute (3) Hypokalemia Priority: Primary Status: Acute (4) UTI (urinary tract infection) Priority: Primary Status: Acute Qualifiers: Urinary tract infection type: acute cystitis Hematuria presence: without hematuria Qualified Code(s): N30.00 - Acute cystitis without hematuria (5) Diabetes Priority: Secondary Status: Chronic Qualifiers: Diabetes mellitus type: type 2 Diabetes mellitus [facility] insulin use: without [facility] use Diabetes mellitus complication status: without complication Qualified Code(s): E11.9 - Type 2 diabetes mellitus without complications (6) Hypomagnesemia Priority: Primary Status: Acute (7) Hypocalcemia Priority: Secondary Status: Acute (8) Weight loss Priority: Primary Status: Acute (9) DVT prophylaxis Priority: Secondary Status: Acute Hospital course: Mr. Alcaraz is a 54 year old male with known past medical history of hyperten giorgi, diabetes type II and alcohol abuse Patient presented to the emergency department with swelling in his right hand, fevers for 1 week and burning with urination. He had been at the residency clinic for routine follow up from his previous hospitalization after being discharged from the hospital March 15 for severe hyponatremia and alcoholism. According to family who is at bedside they state that he has been off alcohol since his discharge, he has lost about 20 pounds, he has no appetite and he is been feverish. He was admitted in the hospital and started him on empirical antibiotic IV Mihai ephin. He does have severe electrolyte imbalance due to nutritional deficiency and recent alcohol problem. We continued to replace his K+ and Mg++. His numbers are little better and he is tolerating oral intake well. His Urine was growing G-ve rods, he had E. Coli in the past. His Rt forearm CT showed possible cellulites, no abscess noticed. With IV abx his Rt arm swelling also improved. So will d/c him home in stable condition today. - Time Spent with Patient Total time spent providing and/or coordinating discharge services: - Discharge Medications Prescriptions: New Ciprofloxacin HCl [Cipro] 500 mg PO BID #8 tablet Magnesium Oxide [Mag-Ox] 400 mg PO BID #60 tablet Continued Metformin HCl [Fortamet] 1,000 mg PO DAILY Metoprolol Succinate [Toprol Xl] 100 mg PO DAILY Tamsulosin [Flomax] 0.4 mg PO DAILY #30 capsule Multivitamin [One Daily] 1 each PO DAILY #30 tablet Sodium Chloride [Sodium Chloride Tab] 1 gm PO TID #90 tablet Changed Potassium Chloride [K-Tab ER] 20 meq PO BID #20 tablet.er Home Medications: Metformin HCl [Fortamet] 1,000 mg PO DAILY 03/08/19 [History] Metoprolol Succinate [Toprol Xl] 100 mg PO DAILY 03/09/19 [History] Multivitamin [One Daily] 1 each PO DAILY #30 tablet 03/15/19 [Rx] Sodium Chloride [Sodium Chloride Tab] 1 gm PO TID #90 tablet 03/15/19 [Rx] Tamsulosin [Flomax] 0.4 mg PO DAILY #30 capsule 03/15/19 [Rx] Ciprofloxacin HCl [Cipro] 500 mg PO BID #8 tablet 04/15/19 [Rx] Magnesium Oxide [Mag-Ox] 400 mg PO BID #60 tablet 04/15/19 [Rx] Potassium Chloride [K-Tab ER] 20 meq PO BID #20 tablet.er 04/15/19 [Rx] Allergies/Adverse Reactions: Allergy/AdvReac Type Severity Reaction Status Date / Time Sulfa (Sulfonamide Allergy Rash Verified 03/09/19 10:31 Antibiotics) Date of admission: 04/13/19 20:00 Primary care physician: Kiran Broussard DO Consults: 04/13/19 22:43 Consult to Nutrition [CONS] Routine Comment: Consulting Provider: NUTRITION Reason for Dietary Consult: PO Supplementation - Constitutional Vitals: Temp Pulse Resp BP Pulse Ox 97.8 F 96 21 149/89 97 04/15/19 10:41 04/15/19 10:41 04/15/19 10:41 04/15/19 10:41 04/15/19 10:41 General appearance: Present: cooperative, A&O X 3, no acute distress, answers questions appropriately Exam: Gen: Alert, awake, Oriented to time,place and person Chest: Diminished breath sounds B/L, No wheezing, No crackles, No rales Heart: S1S2+ tachycardia, No murmurs Abd: Soft, NT, BS +, No organomegaly Ext: Improved swelling and edema noticed in Rt forearm and wrist. No erythema. pulses are palpable, No calf tenderness.. Neuro : No acute focal neuro deficits noticed Skin: No rash. - Patient Status Disposition: Home, Self-Care Condition: Good - Discharge Instructions Follow Up With: Kiran Broussard DO [Primary Care Provider] - 04/20/19 3:00 pm - Diet and Activity Activity: increase activity as tolerated Diet: low salt diet
--- NOTE | 2019-04-16 15:10 | Electrocardiograph Report ---
[place] [facility] Test Date: 2019-04-13 Pat Name: Edi Alcaraz Department: [id number] Room: 3B36 Gender: M Access Registrar: : [id number] Requested By: Xiao Martin Order Number: [id number] Reading MD: Ankur Francisco Measurements Intervals [place] Rate: 73 P: 16 LA: 136 QRS: 25 QRSD: 93 T: 25 QT: 443 QTc: 489 Interpretive Statements Sinus rhythm Borderline prolonged QT interval Electronically Signed On 04-16-2019 15:08:16 EDT by Ankur Francisco
== END 2019-04-15 15:20 | disposition home or self-care (01) ==
LOC: EMEROOARM 16:43 → 3BNU 16:43 → SUATTDRO 20:00 → 3BNU 20:25
PROVIDERS: ADMIT Pediatrics; ATTEND Family Medicine